=== PATIENT | male | born 1965 | race Caucasian/White ===

== ENCOUNTER 2017-02-18 10:09 | Emergency (ER) | payer MEDICAID ==
--- NOTE | 2017-02-18 10:14 | EDPHY ---
H & P Time Seen by Provider: 02/18/17 10:12 HPI/ROS: CHIEF COMPLAINT: Facial swelling after bee sting HISTORY OF PRESENT ILLNESS: Patient arrives by EMS. 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 He received 50 mg IV Benadryl and presents with some sleepiness after the Benadryl. Some facial swelling. A little bit of shortness of breath. REVIEW OF SYSTEMS: Eye: no change in vision ENT: no sore throat Cardiac: no chest pain or syncope Pulmonary: no cough Abdomen: no vomiting, diarrhea, abdominal pain Musculoskeletal: no back pain Skin: Urticaria Neuro: no headache Constitutional: no fever : no urinary symptoms A comprehensive 10 point review of systems is otherwise negative aside from elements mentioned in the history of present illness. PAST MEDICAL HISTORY: Pulmonary embolism and kidney stones. Social history: Tobacco smoker General Appearance: Alert and conversant, cooperative. Eyes: No scleral icterus. Upper and lower bilateral eyelid edema. ENT, Mouth: Normal mucous membranes. No angioedema. Respiratory: Normal respiratory effort, breath sounds equal, very faint wheezing. Cardiovascular: Regular rate and rhythm. Gastrointestinal: Abdomen is soft and non tender. Neurological: Alert and oriented x3. Normally conversant. Face symmetric, normal movement and sensation in all extremities. Skin: Red diffuse erythema but without urticaria Musculoskeletal: No peripheral edema and no joint swelling. Psychiatric: Not agitated. Emergency Department course/MDM: Slightly low blood pressure noted at 89, facial edema. Received Benadryl prior to arrival. Steroids and IM epinephrine given. 1120: Stable, normal voice, no difficulty breathing, no angioedema. 1300: Very faint wheezing bilaterally, room air oxygen saturation high 80s. DuoNeb and albuterol neb. 1404: 88% room air, and tells me that 80% is his baseline. Speaks in full sentences. Denies feeling wheezy or short of breath. I think his symptoms today were most likely from his insect sting, allergic reaction. Smoking Status: Heavy smoker Constitutional: Initial Vital Signs Temperature (C) 36.9 C 02/18/17 10:34 Heart Rate 118 H 02/18/17 10:34 Respiratory Rate 18 02/18/17 10:34 Blood Pressure 86/62 L 02/18/17 10:34 O2 Sat (%) 92 02/18/17 10:34 O2 Delivery Mode Room Air O2 (L/minute) 1 Allergies/Adverse Reactions: erythromycin base [Erythromycin Base] Allergy (Mild, Verified 05/25/16 14:09) GI upset Home Medications: Medication Instructions Recorded EPINEPHRINE [EPIPEN] 0.3 mg IM ONCE #2 syr 02/18/17 Famotidine [Pepcid] 20 mg PO BID #6 tab 02/18/17 predniSONE [prednisone 20mg (RX)] 20 mg PO Q12 #15 tab 02/18/17 Medical Decision Making Differential Diagnosis: Differential diagnosis considered including but not limited to pulmonary embolism, COPD, allergic reaction, insect sting, infection. - Data Points Medications Given: Discontinued Medications Albuterol (Proventil Neb) 3 ml IH EDNOW ONE Stop: 02/18/17 13:04 Last Admin: 02/18/17 13:09 Dose: 3 ml Albuterol (Proventil Neb) 3 ml IH EDNOW ONE Stop: 02/18/17 14:05 Last Admin: 02/18/17 14:17 Dose: 3 ml Albuterol (Proventil Neb) 3 ml IH EDNOW ONE Stop: 02/18/17 14:05 Last Admin: 02/18/17 14:17 Dose: 3 ml Albuterol/Ipratropium (Duoneb) 3 ml IH EDNOW ONE Stop: 02/18/17 13:04 Last Admin: 02/18/17 13:09 Dose: 3 ml Epinephrine HCl (Epinephrine) 0.3 mg IM EDNOW ONE Stop: 02/18/17 10:19 Last Admin: 02/18/17 10:22 Dose: 0.3 mg Prednisone (Prednisone) 60 mg PO EDNOW ONE Stop: 02/18/17 10:19 Last Admin: 02/18/17 10:24 Dose: 60 mg Departure - Departure Disposition: Home, Routine, Self-Care Clinical Impression: Allergic reaction Qualifiers: Encounter type: initial encounter Qualified Code(s): T78.40XA - Allergy, unspecified, initial encounter Condition: Serious Instructions: Anaphylaxis (ED) Referrals: [facility],. [Clinic] - As per Instructions Prescriptions: EPINEPHRINE [EPIPEN] 0.3 mg IM ONCE #2 syr Famotidine [Pepcid] 20 mg PO BID #6 tab predniSONE [prednisone 20mg (RX)] 20 mg PO Q12 #15 tab
[2017-02-18] MEDS ORDERED: predniSONE 20 MG TAB PO ONE (10:18)
[2017-02-18] MEDS ORDERED: ALBUTEROL 3 ML DEYVIAL IH ONE ×2 (13:03→14:04)
[2017-02-18] MEDS ORDERED: IPRATROPIUM/ALBUTEROL 3 ML DEYVIAL IH ONE (13:03)
[2017-02-18] MEDS: ALBUTEROL 3 ML DEYVIAL IH ONE (14:17)
[2017-02-18 14:30] VITALS: BP 114/68; PULSE 105; RESP 18; TEMP 98.1; O2SAT 93
== END 2017-02-18 14:37 | disposition home or self-care (01) ==
LOC: EDUNIT#
DX: T78.40XA Allergy, unspecified, initial encounter (principal); F17.200 Nicotine dependence, unspecified, uncomplicated; X58.XXXA Exposure to other specified factors, initial encounter; Y92.009 Unspecified place in unspecified non-institutional (private) residence as the place of occurrence of the external cause; Y99.8 Other external cause status; Y93.89 Activity, other specified
CPT/HCPCS: J0171

== ENCOUNTER → 2017-08-08 | Outpatient (CLI) | payer MEDICAID | LOC: FIMAGING 09:19 | PROVIDERS: ATTEND Family Medicine | DX: Z11.1 Encounter for screening for respiratory tuberculosis (principal); R76.11 Nonspecific reaction to tuberculin skin test without active tuberculosis ==